=== PATIENT | female | born 1935 | race Caucasian/White ===

== ENCOUNTER 2017-02-20 14:23 | Emergency (ER) | payer OTHER ==
[~2017-02-20] VITALS: Ht 162.6 cm; Wt 50.5 kg
[2017-02-20] MEDS ORDERED: LIDOCAINE 1%, 10ML INFIL ONE (15:00)
[2017-02-20 15:12] LABS: BLOOD UREA NITROGEN 29 mg/dL (7-18)
[2017-02-20] MEDS ORDERED: DIPH,PERTUSS(ACELL),TET VAC/PF 0.5 ML IM-VACC ONE ×2 (16:00→16:14)
[2017-02-20 16:26] VITALS: BP 137/53
== END 2017-02-20 16:51 | disposition home or self-care (01) ==
LOC: ED 14:47
DX: S01.01XA Laceration without foreign body of scalp, initial encounter (principal); E03.9 Hypothyroidism, unspecified; W01.0XXA Fall on same level from slipping, tripping and stumbling without subsequent striking against object, initial encounter; Y93.89 Activity, other specified; Y92.009 Unspecified place in unspecified non-institutional (private) residence as the place of occurrence of the external cause; Y99.9 Unspecified external cause status
CPT/HCPCS: 12001; 36415; 70450; 72125; 80048; 82040; 85025; 85610; 85730; 90471; 90715; 93005

== ENCOUNTER 2018-01-07 13:59 | Inpatient (IN) | payer OTHER ==
[~2018-01-07] VITALS: Ht 157.5 cm; Wt 56.2 kg
[2018-01-07] MEDS ORDERED: HYDR-3237 PO (14:41)
[2018-01-07] MEDS ORDERED: LEVO25TA4 PO (14:41)
[2018-01-07] MEDS ORDERED: PRAV10TA2 PO (14:41)
[2018-01-07] MEDS ORDERED: HYDR12.53 PO (14:41)
[2018-01-07 14:46] LABS: MICROSCOPIC NOT IND
[2018-01-07] MEDS ORDERED: SODIUM CHLORIDE 0.9% 1,000ML IVBOLUS ONE (15:00)
[2018-01-07] MEDS ORDERED: SODIUM CHLORIDE FLUSH 10ML SYR IVF ONE (15:00)
[2018-01-07 15:24] LABS: BASOPHILS # (AUTO) 0.07 x10^3/uL (0-0.1); BASOPHILS % (AUTO) 1 % (0-1); EOSINOPHILS # (AUTO) 0.07 x10^3/uL (0-0.4); EOSINOPHILS % (AUTO) 1 % (1-7); LYMPHOCYTES # (AUTO) 2.28 x10^3/uL (1-3.4); LYMPHOCYTES % (AUTO) 27 % (22-44); MD NO; MEAN CORPUSCULAR HGB CONC 33.7 g/dL (32.4-35.8); MEAN PLATELET VOLUME 8.1 fL (7.4-10.4); MONOCYTES % (AUTO) 12 % (2-9); NEUTROPHILS # (AUTO) 5.18 x10^3/uL (1.8-6.8); NEUTROPHILS % (AUTO) 60 % (42-75); PLATELET COUNT 320 x10^3/uL (130-400); RED CELL DISTRIBUTION WIDTH 13.6 % (9.6-15.2)
[2018-01-07 15:29] LABS: ALBUMIN 3.8 g/dL (3.4-5.0); ANION GAP 8 mmol/L (5-15); CALCIUM 9.4 mg/dL (8.5-10.1); CHLORIDE 106 mmol/L (98-107)
[2018-01-07 15:32] LABS: ALANINE AMINOTRANSFERASE 43 U/L (12-78); ALKALINE PHOSPHATASE 86 U/L (45-117); BILIRUBIN,TOTAL 0.6 mg/dL (0.2-1.0); CREATININE 1.81 mg/dL (0.55-1.02); FREE T4 (FREE THYROXINE) 1.98 ng/dL (0.76-1.46); TOTAL PROTEIN 8.2 g/dL (6.4-8.2)
[2018-01-07 15:37] LABS: THYROID STIMULATING HORMONE 0.313 mIU/L (0.358-3.740); TROPONIN I 0.275 ng/mL (0.000-0.045)
[2018-01-07] MEDS ORDERED: SODIUM CHLORIDE 0.9%, 500ML IVBOLUS ONE (16:30)
[2018-01-07] MEDS ORDERED: ONDANSETRON 2MG/ML, 2ML IVPush PRN (17:00)
[2018-01-07] MEDS ORDERED: HALOPERIDOL 1 MG TABLET PO PRN (17:00)
[2018-01-07] MEDS ORDERED: SODIUM CHLORIDE FLUSH 10ML SYR IVF PRN (17:00)
[2018-01-07] MEDS ORDERED: BISACODYL 10 MG SUPP PR PRN (17:00)
[2018-01-07] MEDS: HEPARIN 5,000 UNITS/ML, 1ML SQ SCH (18:21)
[2018-01-07] MEDS: NICOTINE 7 MG/24 HR PATCH.TD24 TD SCH (18:21)
[2018-01-07] MEDS: D5%-0.45NACL+KCL 20MEQ 1,000 ML IV SCH (18:21)
[2018-01-07 20:00] VITALS: BP 132/65
[2018-01-08] MEDS ORDERED: PNEUMOCOCCAL 23 VACCINE IM-VACC ONE (02:00)
[2018-01-08] MEDS: D5%-0.45NACL+KCL 20MEQ 1,000 ML IV SCH ×3 (02:00→18:19)
[2018-01-08 02:31] VITALS: BP 133/64
[2018-01-08 04:55] LABS: BASOPHILS # (AUTO) 0.06 x10^3/uL (0-0.1); BASOPHILS % (AUTO) 1 % (0-1); EOSINOPHILS # (AUTO) 0.06 x10^3/uL (0-0.4); EOSINOPHILS % (AUTO) 1 % (1-7); LYMPHOCYTES # (AUTO) 1.63 x10^3/uL (1-3.4); LYMPHOCYTES % (AUTO) 20 % (22-44); MD NO; MEAN CORPUSCULAR HEMOGLOBIN 29.5 pg (27.0-34.8); MEAN CORPUSCULAR HGB CONC 34.1 g/dL (32.4-35.8); MEAN CORPUSCULAR VOLUME 86.4 fL (80-100); MEAN PLATELET VOLUME 8.2 fL (7.4-10.4); MONOCYTES % (AUTO) 11 % (2-9); NEUTROPHILS # (AUTO) 5.36 x10^3/uL (1.8-6.8); NEUTROPHILS % (AUTO) 67 % (42-75); PLATELET COUNT 298 x10^3/uL (130-400); RED BLOOD COUNT 4.57 x10^6/uL (3.82-5.3); RED CELL DISTRIBUTION WIDTH 13.4 % (9.6-15.2)
[2018-01-08 05:05] LABS: ALANINE AMINOTRANSFERASE 34 U/L (12-78); ALBUMIN 3.2 g/dL (3.4-5.0); ANION GAP 7 mmol/L (5-15); CALCIUM 8.8 mg/dL (8.5-10.1); CHLORIDE 108 mmol/L (98-107)
[2018-01-08 05:07] LABS: ALKALINE PHOSPHATASE 79 U/L (45-117); BILIRUBIN,TOTAL 0.5 mg/dL (0.2-1.0); TOTAL PROTEIN 6.8 g/dL (6.4-8.2)
[2018-01-08] MEDS: HEPARIN 5,000 UNITS/ML, 1ML SQ SCH ×2 (06:14→18:19)
[2018-01-08] MEDS ORDERED: POTASSIUM CHLORIDE 20 MEQ TAB.ER.PRT PO ONE (08:00)
[2018-01-08 08:49] VITALS: BP 135/61
[2018-01-08 09:07] LABS: TROPONIN I 0.245 ng/mL (0.000-0.045)
[2018-01-08] MEDS: LEVOTHYROXINE 25 MCG TABLET PO SCH (10:08)
[2018-01-08 12:09] LABS: TROPONIN I 0.227 ng/mL (0.000-0.045)
[2018-01-08] MEDS: ACETAMINOPHEN 325 MG TABLET PO PRN (12:44)
[2018-01-08 14:05] VITALS: BP 120/61
[2018-01-08] MEDS: NICOTINE 7 MG/24 HR PATCH.TD24 TD SCH (18:19)
[2018-01-08 20:14] VITALS: BP 127/62
[2018-01-09 01:10] VITALS: BP 139/62
[2018-01-09] MEDS: D5%-0.45NACL+KCL 20MEQ 1,000 ML IV SCH ×3 (02:28→19:27)
[2018-01-09 04:54] LABS: ANION GAP 6 mmol/L (5-15); CALCIUM 8.8 mg/dL (8.5-10.1); CHLORIDE 107 mmol/L (98-107); CREATININE 1.04 mg/dL (0.55-1.02)
[2018-01-09] MEDS: ASPIRIN 81 MG TABLET EC PO SCH (06:05)
[2018-01-09] MEDS: LEVOTHYROXINE 25 MCG TABLET PO SCH (06:05)
[2018-01-09] MEDS: HEPARIN 5,000 UNITS/ML, 1ML SQ SCH ×2 (06:06→18:41)
[2018-01-09 06:50] VITALS: BP 115/55
[2018-01-09 14:27] VITALS: BP 147/70
[2018-01-09] MEDS: NICOTINE 7 MG/24 HR PATCH.TD24 TD SCH (18:07)
[2018-01-09 19:23] VITALS: BP 132/61
[2018-01-10 02:00] VITALS: BP 147/69
[2018-01-10] MEDS: LEVOTHYROXINE 25 MCG TABLET PO SCH (05:58)
[2018-01-10] MEDS: D5%-0.45NACL+KCL 20MEQ 1,000 ML IV SCH (05:58)
[2018-01-10] MEDS: ASPIRIN 81 MG TABLET EC PO SCH ×2 (05:59→06:02)
[2018-01-10] MEDS: HEPARIN 5,000 UNITS/ML, 1ML SQ SCH ×2 (05:59→18:07)
[2018-01-10 06:35] VITALS: BP 103/63
[2018-01-10 12:18] LABS: ANION GAP 7 mmol/L (5-15); CALCIUM 8.9 mg/dL (8.5-10.1); CHLORIDE 104 mmol/L (98-107)
[2018-01-10 12:20] LABS: CREATININE 0.98 mg/dL (0.55-1.02)
[2018-01-10 14:50] VITALS: BP 128/69
[2018-01-10] MEDS: NICOTINE 7 MG/24 HR PATCH.TD24 TD SCH (18:07)
[2018-01-10] MEDS: D5%-0.45% NACL 1,000 ML IV SCH (18:07)
[2018-01-10 19:39] VITALS: BP 96/66
[2018-01-11 01:03] VITALS: BP 103/64
[2018-01-11] MEDS: LEVOTHYROXINE 25 MCG TABLET PO SCH (06:18)
[2018-01-11] MEDS: ASPIRIN 325 MG TABLET PO SCH (06:18)
[2018-01-11 06:38] VITALS: BP 132/65
[2018-01-11] MEDS: HEPARIN 5,000 UNITS/ML, 1ML SQ SCH ×2 (09:22→18:20)
[2018-01-11 12:58] VITALS: BP 111/64
[2018-01-11] MEDS: D5%-0.45% NACL 1,000 ML IV SCH (15:48)
[2018-01-11] MEDS: NICOTINE 7 MG/24 HR PATCH.TD24 TD SCH (18:23)
[2018-01-11 20:46] VITALS: BP 106/66
[2018-01-12 02:00] VITALS: BP 124/68
[2018-01-12] MEDS: LEVOTHYROXINE 25 MCG TABLET PO SCH (05:44)
[2018-01-12] MEDS: HEPARIN 5,000 UNITS/ML, 1ML SQ SCH ×2 (05:44→18:25)
[2018-01-12] MEDS: ASPIRIN 325 MG TABLET PO SCH (05:44)
[2018-01-12 06:43] VITALS: BP 88/49
[2018-01-12] MEDS: D5%-0.45% NACL 1,000 ML IV SCH (10:28)
[2018-01-12 13:21] VITALS: BP 110/56
[2018-01-12] MEDS: ACETAMINOPHEN 325 MG TABLET PO PRN (13:32)
[2018-01-12] MEDS: NICOTINE 7 MG/24 HR PATCH.TD24 TD SCH (17:37)
[2018-01-12 18:22] LABS: CLOSTRIDIUM DIFFICILE ANTIGEN NEGATIVE; CLOSTRIDIUM DIFFICILE TOXIN NEGATIVE (Negative)
[2018-01-12 20:07] VITALS: BP 112/61
[2018-01-13 01:11] VITALS: BP 98/54
[2018-01-13] MEDS: LEVOTHYROXINE 25 MCG TABLET PO SCH (06:09)
[2018-01-13] MEDS: ASPIRIN 325 MG TABLET PO SCH (06:09)
[2018-01-13] MEDS: HEPARIN 5,000 UNITS/ML, 1ML SQ SCH ×2 (06:11→18:22)
[2018-01-13] MEDS: HYDROCORTISONE CRM 0.5%, 30GM TP SCH ×2 (10:30→21:00)
[2018-01-13 12:53] VITALS: BP 119/63
[2018-01-13] MEDS: NICOTINE 7 MG/24 HR PATCH.TD24 TD SCH (18:00)
[2018-01-13] MEDS ORDERED: ONDANSETRON 2MG/ML, 2ML IVPush PRN (18:08)
[2018-01-13] MEDS ORDERED: ONDANSETRON ODT 4 MG PO PRN ×2 (18:30)
[2018-01-13 20:14] VITALS: BP 100/62
[2018-01-14 01:31] VITALS: BP 105/75
[2018-01-14] MEDS: HEPARIN 5,000 UNITS/ML, 1ML SQ SCH ×2 (06:26→18:07)
[2018-01-14] MEDS: ASPIRIN 325 MG TABLET PO SCH (06:28)
[2018-01-14] MEDS: LEVOTHYROXINE 25 MCG TABLET PO SCH (06:28)
[2018-01-14 08:00] VITALS: BP 101/68
[2018-01-14] MEDS: HYDROCORTISONE CRM 0.5%, 30GM TP SCH ×2 (08:30→20:53)
[2018-01-14 12:58] VITALS: BP_SYST 88; BP_SYST 93; BP_DIAS 44
[2018-01-14] MEDS: ACETAMINOPHEN 325 MG TABLET PO PRN (14:55)
[2018-01-14 17:44] VITALS: BP 113/63
[2018-01-14] MEDS: NICOTINE 7 MG/24 HR PATCH.TD24 TD SCH (18:08)
[2018-01-14 19:46] VITALS: BP 118/66
[2018-01-15 01:55] VITALS: BP 112/62
[2018-01-15] MEDS: LEVOTHYROXINE 25 MCG TABLET PO SCH (05:47)
[2018-01-15] MEDS: HEPARIN 5,000 UNITS/ML, 1ML SQ SCH ×2 (05:47→18:30)
[2018-01-15] MEDS: ASPIRIN 325 MG TABLET PO SCH (05:47)
[2018-01-15 07:40] VITALS: BP 104/66
[2018-01-15] MEDS: HYDROCORTISONE CRM 0.5%, 30GM TP SCH ×2 (09:00→19:46)
[2018-01-15 13:07] VITALS: BP 101/62
[2018-01-15] MEDS: NICOTINE 7 MG/24 HR PATCH.TD24 TD SCH (18:31)
[2018-01-15 19:18] VITALS: BP 88/54
[2018-01-15 19:19] VITALS: BP 108/60
[2018-01-16 01:43] VITALS: BP 141/83
[2018-01-16] MEDS: LEVOTHYROXINE 25 MCG TABLET PO SCH (05:39)
[2018-01-16] MEDS: HEPARIN 5,000 UNITS/ML, 1ML SQ SCH ×2 (05:40→20:21)
[2018-01-16] MEDS: ASPIRIN 325 MG TABLET PO SCH (05:40)
[2018-01-16 06:10] LABS: ANION GAP 7 mmol/L (5-15); CHLORIDE 103 mmol/L (98-107)
[2018-01-16 06:13] LABS: CALCIUM 9.3 mg/dL (8.5-10.1); CREATININE 1.14 mg/dL (0.55-1.02)
[2018-01-16 07:22] VITALS: BP 93/55
[2018-01-16] MEDS: HYDROCORTISONE CRM 0.5%, 30GM TP SCH ×2 (09:00→20:20)
[2018-01-16 14:00] VITALS: BP 125/68
[2018-01-16 19:31] VITALS: BP 102/59
[2018-01-16] MEDS: NICOTINE 7 MG/24 HR PATCH.TD24 TD SCH (20:21)
[2018-01-17 03:57] VITALS: BP 123/58
[2018-01-17 05:33] LABS: BASOPHILS # (AUTO) 0.07 x10^3/uL (0-0.1); BASOPHILS % (AUTO) 1 % (0-1); EOSINOPHILS # (AUTO) 0.11 x10^3/uL (0-0.4); EOSINOPHILS % (AUTO) 1 % (1-7); LYMPHOCYTES % (AUTO) 30 % (22-44); MD NO; MEAN CORPUSCULAR HEMOGLOBIN 28.9 pg (27.0-34.8); MEAN CORPUSCULAR HGB CONC 33.3 g/dL (32.4-35.8); MEAN PLATELET VOLUME 7.7 fL (7.4-10.4); MONOCYTES # (AUTO) 0.78 x10^3/uL (0.2-0.8); MONOCYTES % (AUTO) 10 % (2-9); NEUTROPHILS % (AUTO) 58 % (42-75); PLATELET COUNT 263 x10^3/uL (130-400); RED BLOOD COUNT 4.43 x10^6/uL (3.82-5.3); RED CELL DISTRIBUTION WIDTH 14.1 % (9.6-15.2)
[2018-01-17 05:41] LABS: ANION GAP 8 mmol/L (5-15); CALCIUM 9.1 mg/dL (8.5-10.1); CHLORIDE 105 mmol/L (98-107); CREATININE 1.13 mg/dL (0.55-1.02)
[2018-01-17] MEDS: ASPIRIN 325 MG TABLET PO SCH (05:45)
[2018-01-17] MEDS: LEVOTHYROXINE 25 MCG TABLET PO SCH (05:45)
[2018-01-17 07:56] VITALS: BP 109/69
[2018-01-17] MEDS: HEPARIN 5,000 UNITS/ML, 1ML SQ SCH ×2 (08:00→20:26)
[2018-01-17] MEDS: HYDROCORTISONE CRM 0.5%, 30GM TP SCH ×2 (09:00→20:26)
[2018-01-17 12:24] VITALS: BP 114/70
[2018-01-17 19:53] VITALS: BP 109/68
[2018-01-17] MEDS: NICOTINE 7 MG/24 HR PATCH.TD24 TD SCH (20:26)
[2018-01-18 01:30] VITALS: BP 148/57
[2018-01-18] MEDS: LEVOTHYROXINE 25 MCG TABLET PO SCH (05:24)
[2018-01-18] MEDS: ASPIRIN 325 MG TABLET PO SCH (05:24)
[2018-01-18 07:14] VITALS: BP 111/52
[2018-01-18] MEDS: HYDROCORTISONE CRM 0.5%, 30GM TP SCH ×2 (09:00→21:00)
[2018-01-18] MEDS: HEPARIN 5,000 UNITS/ML, 1ML SQ SCH ×2 (10:16→20:45)
[2018-01-18 13:30] VITALS: BP 109/64
[2018-01-18] MEDS: ACETAMINOPHEN 325 MG TABLET PO PRN (15:45)
[2018-01-18 19:18] VITALS: BP 112/62
[2018-01-18] MEDS: NICOTINE 7 MG/24 HR PATCH.TD24 TD SCH (20:44)
[2018-01-19 03:02] VITALS: BP 133/65
[2018-01-19] MEDS: ACETAMINOPHEN 325 MG TABLET PO PRN ×2 (06:11→10:36)
[2018-01-19] MEDS: ASPIRIN 325 MG TABLET PO SCH (06:11)
[2018-01-19] MEDS: LEVOTHYROXINE 25 MCG TABLET PO SCH (06:11)
[2018-01-19 08:00] VITALS: BP 110/61
[2018-01-19] MEDS: HYDROCORTISONE CRM 0.5%, 30GM TP SCH ×2 (08:56→21:00)
[2018-01-19] MEDS: HEPARIN 5,000 UNITS/ML, 1ML SQ SCH ×2 (08:56→20:00)
[2018-01-19 14:00] VITALS: BP 104/54
[2018-01-19 20:06] VITALS: BP 132/69
[2018-01-19] MEDS: NICOTINE 7 MG/24 HR PATCH.TD24 TD SCH (22:18)
[2018-01-20 02:14] VITALS: BP 132/60
[2018-01-20] MEDS: ASPIRIN 325 MG TABLET PO SCH (05:33)
[2018-01-20] MEDS: LEVOTHYROXINE 25 MCG TABLET PO SCH (05:33)
[2018-01-20] MEDS: ACETAMINOPHEN 325 MG TABLET PO PRN ×3 (05:33→18:18)
[2018-01-20 07:55] VITALS: BP 109/66
[2018-01-20] MEDS: HEPARIN 5,000 UNITS/ML, 1ML SQ SCH ×2 (08:15→20:58)
[2018-01-20] MEDS: HYDROCORTISONE CRM 0.5%, 30GM TP SCH ×2 (08:16→20:58)
[2018-01-20 13:32] VITALS: BP 104/58
[2018-01-20] MEDS: NICOTINE 7 MG/24 HR PATCH.TD24 TD SCH (20:00)
[2018-01-20 20:24] VITALS: BP_SYST 105; BP_SYST 76; BP_DIAS 44; BP_DIAS 62
[2018-01-20] MEDS: FAMCICLOVIR 500 MG TABLET PO SCH (20:57)
[2018-01-21 01:59] VITALS: BP 119/56
[2018-01-21] MEDS: FAMCICLOVIR 500 MG TABLET PO SCH ×3 (06:29→21:09)
[2018-01-21] MEDS: ASPIRIN 325 MG TABLET PO SCH (06:30)
[2018-01-21] MEDS: LEVOTHYROXINE 25 MCG TABLET PO SCH (06:30)
[2018-01-21] MEDS: HEPARIN 5,000 UNITS/ML, 1ML SQ SCH ×2 (08:00→21:10)
[2018-01-21] MEDS: HYDROCORTISONE CRM 0.5%, 30GM TP SCH ×2 (09:00→21:00)
[2018-01-21 09:10] VITALS: BP 99/57
[2018-01-21 12:48] VITALS: BP 121/65
[2018-01-21] MEDS: NICOTINE 7 MG/24 HR PATCH.TD24 TD SCH (20:00)
[2018-01-21 20:11] VITALS: BP 99/55
[2018-01-21] MEDS: ACETAMINOPHEN 325 MG TABLET PO PRN (21:10)
[2018-01-22 02:01] VITALS: BP 97/52
[2018-01-22] MEDS: ASPIRIN 325 MG TABLET PO SCH (05:35)
[2018-01-22] MEDS: LEVOTHYROXINE 25 MCG TABLET PO SCH (05:35)
[2018-01-22] MEDS: FAMCICLOVIR 500 MG TABLET PO SCH ×3 (05:35→21:57)
[2018-01-22 08:14] VITALS: BP 112/65
[2018-01-22] MEDS: HYDROCORTISONE CRM 0.5%, 30GM TP SCH ×2 (09:00→21:55)
[2018-01-22] MEDS: HEPARIN 5,000 UNITS/ML, 1ML SQ SCH ×2 (09:11→21:55)
[2018-01-22 13:57] VITALS: BP 104/54
[2018-01-22 14:39] VITALS: BP 112/69
[2018-01-22] MEDS: ACETAMINOPHEN 325 MG TABLET PO PRN (17:42)
[2018-01-22 18:54] VITALS: BP 107/64
[2018-01-22] MEDS: NICOTINE 7 MG/24 HR PATCH.TD24 TD SCH (21:55)
[2018-01-23 02:23] VITALS: BP 127/69
[2018-01-23] MEDS: LEVOTHYROXINE 25 MCG TABLET PO SCH (06:21)
[2018-01-23] MEDS: FAMCICLOVIR 500 MG TABLET PO SCH ×3 (06:21→21:54)
[2018-01-23] MEDS: ASPIRIN 325 MG TABLET PO SCH (06:21)
[2018-01-23 08:05] VITALS: BP 101/58
[2018-01-23] MEDS: HYDROCORTISONE CRM 0.5%, 30GM TP SCH ×2 (09:00→21:55)
[2018-01-23] MEDS: HEPARIN 5,000 UNITS/ML, 1ML SQ SCH ×2 (10:31→21:54)
[2018-01-23 12:46] VITALS: BP 118/64
[2018-01-23 19:22] VITALS: BP 91/53
[2018-01-23] MEDS: NICOTINE 7 MG/24 HR PATCH.TD24 TD SCH (21:54)
[2018-01-24 01:12] VITALS: BP 147/67
[2018-01-24] MEDS: LEVOTHYROXINE 25 MCG TABLET PO SCH (05:34)
[2018-01-24] MEDS: FAMCICLOVIR 500 MG TABLET PO SCH ×3 (05:34→21:15)
[2018-01-24] MEDS: ASPIRIN 325 MG TABLET PO SCH (05:34)
[2018-01-24 07:32] VITALS: BP 77/47
[2018-01-24 07:56] VITALS: BP 94/60
[2018-01-24] MEDS: HYDROCORTISONE CRM 0.5%, 30GM TP SCH ×2 (09:00→21:15)
[2018-01-24] MEDS: HEPARIN 5,000 UNITS/ML, 1ML SQ SCH ×2 (10:26→21:15)
[2018-01-24 12:28] VITALS: BP 108/51
[2018-01-24] MEDS: ACETAMINOPHEN 325 MG TABLET PO PRN (16:38)
[2018-01-24 20:32] VITALS: BP 108/58
[2018-01-24] MEDS: NICOTINE 7 MG/24 HR PATCH.TD24 TD SCH (21:15)
[2018-01-25 03:59] VITALS: BP 145/68
[2018-01-25] MEDS: LEVOTHYROXINE 25 MCG TABLET PO SCH (06:21)
[2018-01-25] MEDS: ASPIRIN 325 MG TABLET PO SCH (06:21)
[2018-01-25] MEDS: FAMCICLOVIR 500 MG TABLET PO SCH ×3 (06:21→21:33)
[2018-01-25] MEDS: HEPARIN 5,000 UNITS/ML, 1ML SQ SCH ×2 (08:36→20:35)
[2018-01-25] MEDS: HYDROCORTISONE CRM 0.5%, 30GM TP SCH (08:39)
[2018-01-25 09:31] VITALS: BP 110/61
[2018-01-25 14:53] VITALS: BP 92/58
[2018-01-25 20:28] VITALS: BP 95/54
[2018-01-25] MEDS: NICOTINE 7 MG/24 HR PATCH.TD24 TD SCH (20:36)
[2018-01-25] MEDS: HYDROCORTISONE OINT 0.5%, 30GM TP SCH (21:33)
[2018-01-26 01:55] VITALS: BP 114/66
[2018-01-26] MEDS: FAMCICLOVIR 500 MG TABLET PO SCH ×3 (05:54→21:35)
[2018-01-26] MEDS: LEVOTHYROXINE 25 MCG TABLET PO SCH (05:55)
[2018-01-26] MEDS: ASPIRIN 325 MG TABLET PO SCH (05:55)
[2018-01-26 08:00] VITALS: BP 100/61
[2018-01-26] MEDS: HEPARIN 5,000 UNITS/ML, 1ML SQ SCH ×2 (08:34→19:32)
[2018-01-26] MEDS: HYDROCORTISONE OINT 0.5%, 30GM TP SCH ×2 (08:34→21:35)
[2018-01-26 14:43] VITALS: BP 101/65
[2018-01-26] MEDS: NICOTINE 7 MG/24 HR PATCH.TD24 TD SCH (19:31)
[2018-01-26 19:34] VITALS: BP 104/61
[2018-01-26 19:59] VITALS: BP 114/67
[2018-01-27 00:15] VITALS: BP 110/61
[2018-01-27] MEDS: FAMCICLOVIR 500 MG TABLET PO SCH ×2 (05:51→14:28)
[2018-01-27] MEDS: ASPIRIN 325 MG TABLET PO SCH (05:51)
[2018-01-27] MEDS: LEVOTHYROXINE 25 MCG TABLET PO SCH (05:51)
[2018-01-27 05:59] LABS: ANION GAP 6 mmol/L (5-15); CALCIUM 8.4 mg/dL (8.5-10.1); CHLORIDE 109 mmol/L (98-107); CREATININE 1.19 mg/dL (0.55-1.02)
[2018-01-27 08:21] VITALS: BP 117/70
[2018-01-27] MEDS: HEPARIN 5,000 UNITS/ML, 1ML SQ SCH ×2 (09:05→20:55)
[2018-01-27] MEDS: HYDROCORTISONE OINT 0.5%, 30GM TP SCH ×2 (09:05→20:55)
[2018-01-27 14:52] VITALS: BP 108/65
[2018-01-27] MEDS: NICOTINE 7 MG/24 HR PATCH.TD24 TD SCH (20:55)
[2018-01-27 20:59] VITALS: BP 154/76
[2018-01-28 02:02] VITALS: BP 151/62
[2018-01-28] MEDS: ASPIRIN 325 MG TABLET PO SCH (05:35)
[2018-01-28] MEDS: LEVOTHYROXINE 25 MCG TABLET PO SCH (05:36)
[2018-01-28 06:05] LABS: ANION GAP 8 mmol/L (5-15); CALCIUM 9.1 mg/dL (8.5-10.1); CHLORIDE 107 mmol/L (98-107)
[2018-01-28 06:08] LABS: CREATININE 1.09 mg/dL (0.55-1.02)
[2018-01-28] MEDS: HEPARIN 5,000 UNITS/ML, 1ML SQ SCH ×2 (07:32→20:18)
[2018-01-28] MEDS: HYDROCORTISONE OINT 0.5%, 30GM TP SCH ×2 (07:32→20:18)
[2018-01-28 07:34] VITALS: BP 120/64
[2018-01-28 16:04] VITALS: BP 110/59
[2018-01-28 18:39] VITALS: BP 106/69
[2018-01-28] MEDS: NICOTINE 7 MG/24 HR PATCH.TD24 TD SCH (20:18)
[2018-01-29 01:09] VITALS: BP 144/70
[2018-01-29 05:09] LABS: CALCIUM 8.9 mg/dL (8.5-10.1); CHLORIDE 107 mmol/L (98-107)
[2018-01-29 05:12] LABS: ANION GAP 5 mmol/L (5-15); CREATININE 1.09 mg/dL (0.55-1.02)
[2018-01-29] MEDS: ASPIRIN 325 MG TABLET PO SCH (05:54)
[2018-01-29] MEDS: LEVOTHYROXINE 25 MCG TABLET PO SCH (05:55)
[2018-01-29 07:40] VITALS: BP 93/60
[2018-01-29] MEDS: HEPARIN 5,000 UNITS/ML, 1ML SQ SCH ×2 (08:22→21:11)
[2018-01-29] MEDS: HYDROCORTISONE OINT 0.5%, 30GM TP SCH ×2 (08:22→21:12)
[2018-01-29 12:13] VITALS: BP 117/56
[2018-01-29 18:42] VITALS: BP 107/70
[2018-01-29] MEDS: NICOTINE 7 MG/24 HR PATCH.TD24 TD SCH (21:12)
[2018-01-30 01:11] VITALS: BP 117/58
[2018-01-30] MEDS: ASPIRIN 325 MG TABLET PO SCH (06:16)
[2018-01-30] MEDS: LEVOTHYROXINE 25 MCG TABLET PO SCH (06:16)
[2018-01-30 06:35] VITALS: BP 92/54
[2018-01-30 07:58] VITALS: BP 100/54
[2018-01-30] MEDS: HYDROCORTISONE OINT 0.5%, 30GM TP SCH ×2 (08:00→20:00)
[2018-01-30] MEDS: HEPARIN 5,000 UNITS/ML, 1ML SQ SCH ×2 (08:00→19:59)
[2018-01-30 12:47] VITALS: BP 94/54
[2018-01-30 13:30] VITALS: BP 90/52
[2018-01-30 19:09] VITALS: BP 94/54
[2018-01-30] MEDS: NICOTINE 7 MG/24 HR PATCH.TD24 TD SCH (19:59)
[2018-01-31 01:33] VITALS: BP 137/79
[2018-01-31] MEDS: ACETAMINOPHEN 325 MG TABLET PO PRN (02:07)
[2018-01-31] MEDS: LEVOTHYROXINE 25 MCG TABLET PO SCH (05:19)
[2018-01-31] MEDS: ASPIRIN 325 MG TABLET PO SCH (05:19)
[2018-01-31 07:23] VITALS: BP 103/49
[2018-01-31] MEDS: HEPARIN 5,000 UNITS/ML, 1ML SQ SCH ×2 (07:33→20:58)
[2018-01-31] MEDS: HYDROCORTISONE OINT 0.5%, 30GM TP SCH ×2 (07:33→20:58)
[2018-01-31 12:12] VITALS: BP 100/59
[2018-01-31 20:23] VITALS: BP 111/60
[2018-01-31] MEDS: NICOTINE 7 MG/24 HR PATCH.TD24 TD SCH (20:58)
[2018-02-01 02:13] VITALS: BP 104/61
[2018-02-01] MEDS: ASPIRIN 325 MG TABLET PO SCH (05:49)
[2018-02-01] MEDS: LEVOTHYROXINE 25 MCG TABLET PO SCH (05:49)
[2018-02-01 08:13] VITALS: BP 101/63
[2018-02-01] MEDS: HEPARIN 5,000 UNITS/ML, 1ML SQ SCH ×2 (12:30→21:07)
[2018-02-01] MEDS: HYDROCORTISONE OINT 0.5%, 30GM TP SCH ×2 (12:32→21:07)
[2018-02-01 14:45] VITALS: BP 107/66
[2018-02-01 18:18] VITALS: BP 100/50
[2018-02-01] MEDS: NICOTINE 7 MG/24 HR PATCH.TD24 TD SCH (21:07)
[2018-02-02 03:37] VITALS: BP 115/57
[2018-02-02] MEDS: LEVOTHYROXINE 25 MCG TABLET PO SCH (06:11)
[2018-02-02] MEDS: ASPIRIN 325 MG TABLET PO SCH (06:11)
[2018-02-02] MEDS: HEPARIN 5,000 UNITS/ML, 1ML SQ SCH ×2 (08:00→20:39)
[2018-02-02 08:30] VITALS: BP 104/58
[2018-02-02] MEDS: HYDROCORTISONE OINT 0.5%, 30GM TP SCH ×2 (09:00→20:41)
[2018-02-02 10:25] VITALS: BP 128/91
[2018-02-02 14:30] VITALS: BP 108/60
[2018-02-02 19:02] VITALS: BP 103/56
[2018-02-02] MEDS: NICOTINE 7 MG/24 HR PATCH.TD24 TD SCH (20:41)
[2018-02-03 01:01] VITALS: BP 92/49
[2018-02-03 05:27] LABS: CHLORIDE 106 mmol/L (98-107)
[2018-02-03 05:31] LABS: ANION GAP 7 mmol/L (5-15); CALCIUM 8.6 mg/dL (8.5-10.1); CREATININE 1.18 mg/dL (0.55-1.02)
[2018-02-03] MEDS: ASPIRIN 325 MG TABLET PO SCH (05:49)
[2018-02-03] MEDS: LEVOTHYROXINE 25 MCG TABLET PO SCH (05:49)
[2018-02-03 06:08] VITALS: BP 104/65
[2018-02-03] MEDS: HYDROCORTISONE OINT 0.5%, 30GM TP SCH ×2 (09:30→20:55)
[2018-02-03] MEDS: HEPARIN 5,000 UNITS/ML, 1ML SQ SCH ×2 (09:30→20:00)
[2018-02-03 13:29] VITALS: BP 108/69
[2018-02-03 20:00] VITALS: BP 102/55
[2018-02-03] MEDS: NICOTINE 7 MG/24 HR PATCH.TD24 TD SCH (20:55)
[2018-02-04 02:40] VITALS: BP 97/51
[2018-02-04] MEDS: LEVOTHYROXINE 25 MCG TABLET PO SCH (05:34)
[2018-02-04] MEDS: ASPIRIN 325 MG TABLET PO SCH (05:34)
[2018-02-04 07:25] VITALS: BP 93/53
[2018-02-04] MEDS: HEPARIN 5,000 UNITS/ML, 1ML SQ SCH ×2 (10:37→19:56)
[2018-02-04] MEDS: HYDROCORTISONE OINT 0.5%, 30GM TP SCH ×2 (10:37→19:56)
[2018-02-04 14:00] VITALS: BP 90/49
[2018-02-04 19:18] VITALS: BP 93/51
[2018-02-04] MEDS: NICOTINE 7 MG/24 HR PATCH.TD24 TD SCH (19:56)
[2018-02-05 02:29] VITALS: BP 121/69
[2018-02-05] MEDS: LEVOTHYROXINE 25 MCG TABLET PO SCH (05:24)
[2018-02-05] MEDS: ASPIRIN 325 MG TABLET PO SCH (05:24)
[2018-02-05 08:02] VITALS: BP 97/60
[2018-02-05] MEDS: HYDROCORTISONE OINT 0.5%, 30GM TP SCH ×2 (09:37→21:41)
[2018-02-05] MEDS: HEPARIN 5,000 UNITS/ML, 1ML SQ SCH ×2 (09:37→21:41)
[2018-02-05 13:39] VITALS: BP 86/49
[2018-02-05 19:21] VITALS: BP 122/67
[2018-02-05] MEDS: NICOTINE 7 MG/24 HR PATCH.TD24 TD SCH (21:41)
[2018-02-06 01:32] VITALS: BP 93/52
[2018-02-06] MEDS: ASPIRIN 325 MG TABLET PO SCH (05:55)
[2018-02-06] MEDS: LEVOTHYROXINE 25 MCG TABLET PO SCH (05:55)
[2018-02-06] MEDS: HEPARIN 5,000 UNITS/ML, 1ML SQ SCH ×2 (08:20→22:56)
[2018-02-06] MEDS: HYDROCORTISONE OINT 0.5%, 30GM TP SCH ×2 (08:25→22:56)
[2018-02-06 09:20] VITALS: BP 83/54
[2018-02-06] MEDS: FLUDROCORTISONE 0.1 MG TABLET PO SCH ×2 (11:08→22:56)
[2018-02-06 15:09] VITALS: BP 94/50
[2018-02-06 19:15] VITALS: BP 99/54
[2018-02-06] MEDS: NICOTINE 7 MG/24 HR PATCH.TD24 TD SCH (22:56)
[2018-02-07 01:22] VITALS: BP 170/84
[2018-02-07] MEDS: ASPIRIN 325 MG TABLET PO SCH (06:05)
[2018-02-07] MEDS: LEVOTHYROXINE 25 MCG TABLET PO SCH (06:05)
[2018-02-07 07:35] VITALS: BP 120/67
[2018-02-07] MEDS: HEPARIN 5,000 UNITS/ML, 1ML SQ SCH ×2 (09:59→21:40)
[2018-02-07] MEDS: FLUDROCORTISONE 0.1 MG TABLET PO SCH ×2 (09:59→21:40)
[2018-02-07] MEDS: HYDROCORTISONE OINT 0.5%, 30GM TP SCH ×2 (10:00→21:40)
[2018-02-07 13:59] VITALS: BP 99/53
[2018-02-07 19:12] VITALS: BP 102/66
[2018-02-07] MEDS: NICOTINE 7 MG/24 HR PATCH.TD24 TD SCH (21:40)
[2018-02-08 03:13] VITALS: BP 108/62
[2018-02-08] MEDS: LEVOTHYROXINE 25 MCG TABLET PO SCH (05:43)
[2018-02-08] MEDS: ASPIRIN 325 MG TABLET PO SCH (05:43)
[2018-02-08 07:35] VITALS: BP 111/53
[2018-02-08] MEDS: FLUDROCORTISONE 0.1 MG TABLET PO SCH ×2 (09:06→22:24)
[2018-02-08] MEDS: HYDROCORTISONE OINT 0.5%, 30GM TP SCH ×2 (09:06→22:24)
[2018-02-08] MEDS: HEPARIN 5,000 UNITS/ML, 1ML SQ SCH ×2 (09:07→22:24)
[2018-02-08 13:00] VITALS: BP 99/45
[2018-02-08 20:00] VITALS: BP 90/50
[2018-02-08] MEDS: NICOTINE 7 MG/24 HR PATCH.TD24 TD SCH (22:24)
[2018-02-09 02:00] VITALS: BP 113/62
[2018-02-09] MEDS: ASPIRIN 325 MG TABLET PO SCH (06:10)
[2018-02-09] MEDS: LEVOTHYROXINE 25 MCG TABLET PO SCH (06:10)
[2018-02-09 07:00] VITALS: BP 115/63
[2018-02-09] MEDS: HYDROCORTISONE OINT 0.5%, 30GM TP SCH ×2 (10:09→22:29)
[2018-02-09] MEDS: FLUDROCORTISONE 0.1 MG TABLET PO SCH ×2 (10:09→22:28)
[2018-02-09] MEDS: HEPARIN 5,000 UNITS/ML, 1ML SQ SCH ×2 (10:13→22:28)
[2018-02-09 13:15] VITALS: BP 77/53
[2018-02-09] MEDS: ACETAMINOPHEN 325 MG TABLET PO PRN (14:12)
[2018-02-09 19:27] VITALS: BP 126/65
[2018-02-09 19:53] VITALS: BP 115/68
[2018-02-09] MEDS: NICOTINE 7 MG/24 HR PATCH.TD24 TD SCH (22:29)
[2018-02-10 01:03] VITALS: BP 124/74
[2018-02-10] MEDS: LEVOTHYROXINE 25 MCG TABLET PO SCH (06:08)
[2018-02-10] MEDS: ASPIRIN 325 MG TABLET PO SCH (06:08)
[2018-02-10 08:29] VITALS: BP 114/62
[2018-02-10] MEDS: HYDROCORTISONE OINT 0.5%, 30GM TP SCH ×2 (09:55→21:36)
[2018-02-10] MEDS: FLUDROCORTISONE 0.1 MG TABLET PO SCH ×2 (09:55→21:33)
[2018-02-10] MEDS: HEPARIN 5,000 UNITS/ML, 1ML SQ SCH ×2 (10:11→21:33)
[2018-02-10 13:39] VITALS: BP 76/43
[2018-02-10 16:59] VITALS: BP 114/58
[2018-02-10 21:03] VITALS: BP 66/42
[2018-02-10] MEDS: NICOTINE 7 MG/24 HR PATCH.TD24 TD SCH (21:33)
[2018-02-10 21:42] VITALS: BP 100/55
[2018-02-11 01:33] VITALS: BP 116/68
[2018-02-11] MEDS: LEVOTHYROXINE 25 MCG TABLET PO SCH (05:34)
[2018-02-11] MEDS: ASPIRIN 325 MG TABLET PO SCH (05:34)
[2018-02-11 05:53] LABS: ANION GAP 9 mmol/L (5-15); CALCIUM 9.1 mg/dL (8.5-10.1); CHLORIDE 111 mmol/L (98-107)
[2018-02-11 07:16] VITALS: BP 122/66
[2018-02-11] MEDS: HYDROCORTISONE OINT 0.5%, 30GM TP SCH ×2 (10:17→20:52)
[2018-02-11] MEDS: FLUDROCORTISONE 0.1 MG TABLET PO SCH ×2 (10:17→20:51)
[2018-02-11] MEDS: HEPARIN 5,000 UNITS/ML, 1ML SQ SCH ×2 (10:17→20:51)
[2018-02-11 11:51] LABS: BASOPHILS # (AUTO) 0.11 x10^3/uL (0-0.1); BASOPHILS % (AUTO) 2 % (0-1); EOSINOPHILS # (AUTO) 0.12 x10^3/uL (0-0.4); EOSINOPHILS % (AUTO) 2 % (1-7); LYMPHOCYTES # (AUTO) 1.74 x10^3/uL (1-3.4); LYMPHOCYTES % (AUTO) 25 % (22-44); MD NO; MEAN CORPUSCULAR HEMOGLOBIN 30.5 pg (27.0-34.8); MEAN CORPUSCULAR HGB CONC 33.6 g/dL (32.4-35.8); MEAN CORPUSCULAR VOLUME 90.6 fL (80-100); MEAN PLATELET VOLUME 8.1 fL (7.4-10.4); MONOCYTES # (AUTO) 0.61 x10^3/uL (0.2-0.8); MONOCYTES % (AUTO) 9 % (2-9); NEUTROPHILS # (AUTO) 4.39 x10^3/uL (1.8-6.8); NEUTROPHILS % (AUTO) 63 % (42-75); PLATELET COUNT 323 x10^3/uL (130-400); RED BLOOD COUNT 3.75 x10^6/uL (3.82-5.3)
[2018-02-11 15:03] VITALS: BP 100/64
[2018-02-11 19:58] VITALS: BP 97/54
[2018-02-11] MEDS: NICOTINE 7 MG/24 HR PATCH.TD24 TD SCH (20:51)
[2018-02-12 01:00] VITALS: BP 73/50
[2018-02-12 02:08] VITALS: BP 112/66
[2018-02-12] MEDS: ASPIRIN 325 MG TABLET PO SCH (06:08)
[2018-02-12] MEDS: LEVOTHYROXINE 25 MCG TABLET PO SCH (06:08)
[2018-02-12 07:11] VITALS: BP 94/50
[2018-02-12] MEDS: HYDROCORTISONE OINT 0.5%, 30GM TP SCH ×2 (09:00→19:59)
[2018-02-12] MEDS: FLUDROCORTISONE 0.1 MG TABLET PO SCH ×2 (09:12→19:59)
[2018-02-12] MEDS: HEPARIN 5,000 UNITS/ML, 1ML SQ SCH ×2 (09:12→19:59)
[2018-02-12 12:55] VITALS: BP 94/51
[2018-02-12 19:57] VITALS: BP 137/70
[2018-02-12] MEDS: NICOTINE 7 MG/24 HR PATCH.TD24 TD SCH (19:59)
[2018-02-13 01:27] VITALS: BP 119/76
[2018-02-13] MEDS: LEVOTHYROXINE 25 MCG TABLET PO SCH (06:06)
[2018-02-13] MEDS: ASPIRIN 325 MG TABLET PO SCH (06:06)
[2018-02-13 07:10] VITALS: BP 97/55
[2018-02-13] MEDS: HYDROCORTISONE OINT 0.5%, 30GM TP SCH ×2 (07:39→21:32)
[2018-02-13] MEDS: FLUDROCORTISONE 0.1 MG TABLET PO SCH ×2 (07:39→21:32)
[2018-02-13] MEDS: HEPARIN 5,000 UNITS/ML, 1ML SQ SCH ×2 (12:01→21:32)
[2018-02-13 12:20] VITALS: BP 96/57
[2018-02-13 19:02] VITALS: BP 104/56
[2018-02-13] MEDS: NICOTINE 7 MG/24 HR PATCH.TD24 TD SCH (21:32)
[2018-02-14 01:22] VITALS: BP 98/60
[2018-02-14] MEDS: ASPIRIN 325 MG TABLET PO SCH (05:56)
[2018-02-14] MEDS: LEVOTHYROXINE 25 MCG TABLET PO SCH (05:56)
[2018-02-14] MEDS: HYDROCORTISONE OINT 0.5%, 30GM TP SCH ×2 (07:29→19:58)
[2018-02-14] MEDS: FLUDROCORTISONE 0.1 MG TABLET PO SCH ×2 (07:29→19:58)
[2018-02-14 08:00] VITALS: BP 104/57
[2018-02-14] MEDS: HEPARIN 5,000 UNITS/ML, 1ML SQ SCH ×2 (09:25→19:58)
[2018-02-14 14:20] VITALS: BP 103/54
[2018-02-14 19:13] VITALS: BP 103/56
[2018-02-14] MEDS: NICOTINE 7 MG/24 HR PATCH.TD24 TD SCH (19:58)
[2018-02-15 00:48] VITALS: BP 106/59
[2018-02-15] MEDS: LEVOTHYROXINE 25 MCG TABLET PO SCH (05:45)
[2018-02-15] MEDS: ASPIRIN 325 MG TABLET PO SCH (05:45)
[2018-02-15 07:08] VITALS: BP 110/63
[2018-02-15] MEDS: HEPARIN 5,000 UNITS/ML, 1ML SQ SCH ×2 (09:01→21:24)
[2018-02-15] MEDS: HYDROCORTISONE OINT 0.5%, 30GM TP SCH ×2 (09:01→21:00)
[2018-02-15] MEDS: FLUDROCORTISONE 0.1 MG TABLET PO SCH ×2 (09:01→21:24)
[2018-02-15 13:57] VITALS: BP 96/56
[2018-02-15 18:46] VITALS: BP 108/61
[2018-02-15] MEDS: NICOTINE 7 MG/24 HR PATCH.TD24 TD SCH (21:24)
[2018-02-16 01:28] VITALS: BP 122/66
[2018-02-16] MEDS: LEVOTHYROXINE 25 MCG TABLET PO SCH (06:01)
[2018-02-16] MEDS: ASPIRIN 325 MG TABLET PO SCH (06:01)
[2018-02-16 07:02] VITALS: BP 115/56
[2018-02-16] MEDS: FLUDROCORTISONE 0.1 MG TABLET PO SCH ×2 (12:08→21:52)
[2018-02-16] MEDS: HYDROCORTISONE OINT 0.5%, 30GM TP SCH ×2 (12:09→21:00)
[2018-02-16] MEDS: HEPARIN 5,000 UNITS/ML, 1ML SQ SCH ×2 (12:10→21:52)
[2018-02-16 13:58] VITALS: BP 114/54
[2018-02-16 18:45] VITALS: BP 112/58
[2018-02-16] MEDS: NICOTINE 7 MG/24 HR PATCH.TD24 TD SCH (21:52)
[2018-02-17 00:27] VITALS: BP 128/63
[2018-02-17] MEDS: ACETAMINOPHEN 325 MG TABLET PO PRN (06:11)
[2018-02-17] MEDS: ASPIRIN 325 MG TABLET PO SCH (06:11)
[2018-02-17] MEDS: LEVOTHYROXINE 25 MCG TABLET PO SCH (06:12)
[2018-02-17 06:57] VITALS: BP 119/56
[2018-02-17] MEDS: HYDROCORTISONE OINT 0.5%, 30GM TP SCH ×2 (09:00→21:00)
[2018-02-17] MEDS: FLUDROCORTISONE 0.1 MG TABLET PO SCH ×2 (10:26→22:32)
[2018-02-17] MEDS: HEPARIN 5,000 UNITS/ML, 1ML SQ SCH ×2 (10:27→22:32)
[2018-02-17 13:24] VITALS: BP 92/55
[2018-02-17 20:32] VITALS: BP 99/59
[2018-02-17] MEDS: NICOTINE 7 MG/24 HR PATCH.TD24 TD SCH (22:32)
[2018-02-18 01:41] VITALS: BP 127/72
[2018-02-18] MEDS: ASPIRIN 325 MG TABLET PO SCH (06:07)
[2018-02-18] MEDS: LEVOTHYROXINE 25 MCG TABLET PO SCH (06:08)
[2018-02-18] MEDS: HYDROCORTISONE OINT 0.5%, 30GM TP SCH ×2 (09:00→21:00)
[2018-02-18 09:08] VITALS: BP 96/59
[2018-02-18] MEDS: HEPARIN 5,000 UNITS/ML, 1ML SQ SCH ×2 (10:29→21:34)
[2018-02-18] MEDS: FLUDROCORTISONE 0.1 MG TABLET PO SCH ×2 (10:29→21:33)
[2018-02-18 14:00] VITALS: BP 123/68
[2018-02-18 18:57] VITALS: BP 125/77
[2018-02-18] MEDS: NICOTINE 7 MG/24 HR PATCH.TD24 TD SCH (21:34)
[2018-02-19 01:04] VITALS: BP 148/73
[2018-02-19] MEDS: ASPIRIN 325 MG TABLET PO SCH (05:42)
[2018-02-19] MEDS: LEVOTHYROXINE 25 MCG TABLET PO SCH (05:42)
[2018-02-19 07:40] VITALS: BP 112/64
[2018-02-19] MEDS: HYDROCORTISONE OINT 0.5%, 30GM TP SCH ×2 (09:00→21:00)
[2018-02-19] MEDS: FLUDROCORTISONE 0.1 MG TABLET PO SCH ×2 (09:01→21:35)
[2018-02-19] MEDS: HEPARIN 5,000 UNITS/ML, 1ML SQ SCH ×2 (09:02→21:36)
[2018-02-19 13:10] VITALS: BP 100/61
[2018-02-19 18:49] VITALS: BP 119/65
[2018-02-19] MEDS: NICOTINE 7 MG/24 HR PATCH.TD24 TD SCH (21:35)
[2018-02-20 01:05] VITALS: BP 131/99
[2018-02-20] MEDS: ASPIRIN 325 MG TABLET PO SCH (06:10)
[2018-02-20] MEDS: LEVOTHYROXINE 25 MCG TABLET PO SCH (06:10)
[2018-02-20 07:17] VITALS: BP 123/65
[2018-02-20] MEDS: HEPARIN 5,000 UNITS/ML, 1ML SQ SCH ×2 (09:00→23:13)
[2018-02-20] MEDS: FLUDROCORTISONE 0.1 MG TABLET PO SCH ×2 (09:00→23:12)
[2018-02-20] MEDS: HYDROCORTISONE OINT 0.5%, 30GM TP SCH ×2 (09:00→23:12)
[2018-02-20 14:04] VITALS: BP 123/72
[2018-02-20 19:19] VITALS: BP 105/56
[2018-02-20] MEDS: NICOTINE 7 MG/24 HR PATCH.TD24 TD SCH (23:12)
[2018-02-21 00:55] VITALS: BP 111/67
[2018-02-21] MEDS: LEVOTHYROXINE 25 MCG TABLET PO SCH (05:42)
[2018-02-21] MEDS: ASPIRIN 325 MG TABLET PO SCH (05:42)
[2018-02-21] MEDS ORDERED: ENOXAPARIN 40 MG/0.4 ML SQ SCH (06:30)
[2018-02-21 07:31] VITALS: BP 101/60
[2018-02-21] MEDS: HYDROCORTISONE OINT 0.5%, 30GM TP SCH ×2 (09:00→21:00)
[2018-02-21] MEDS: ACETAMINOPHEN 325 MG TABLET PO PRN (09:44)
[2018-02-21] MEDS: FLUDROCORTISONE 0.1 MG TABLET PO SCH ×2 (09:44→21:07)
[2018-02-21 12:12] VITALS: BP 115/61
[2018-02-21 19:07] VITALS: BP 145/73
[2018-02-21] MEDS: NICOTINE 7 MG/24 HR PATCH.TD24 TD SCH (21:09)
[2018-02-21] MEDS: ENOXAPARIN 30 MG/0.3 ML SQ SCH (21:09)
[2018-02-22 01:04] VITALS: BP 101/60
[2018-02-22] MEDS: LEVOTHYROXINE 25 MCG TABLET PO SCH (05:05)
[2018-02-22] MEDS: ASPIRIN 325 MG TABLET PO SCH (05:05)
[2018-02-22 07:24] VITALS: BP 108/60
[2018-02-22] MEDS: FLUDROCORTISONE 0.1 MG TABLET PO SCH ×2 (10:10→22:30)
[2018-02-22] MEDS: HYDROCORTISONE OINT 0.5%, 30GM TP SCH ×2 (10:10→21:00)
[2018-02-22 14:30] VITALS: BP 104/49
[2018-02-22 18:57] VITALS: BP 95/55
[2018-02-22] MEDS: ENOXAPARIN 30 MG/0.3 ML SQ SCH (22:29)
[2018-02-22] MEDS: NICOTINE 7 MG/24 HR PATCH.TD24 TD SCH (22:30)
[2018-02-23 01:15] VITALS: BP 116/66
[2018-02-23 04:45] LABS: BASOPHILS # (AUTO) 0.09 x10^3/uL (0-0.1); BASOPHILS % (AUTO) 1 % (0-1); EOSINOPHILS # (AUTO) 0.23 x10^3/uL (0-0.4); EOSINOPHILS % (AUTO) 3 % (1-7); LYMPHOCYTES # (AUTO) 2.55 x10^3/uL (1-3.4); LYMPHOCYTES % (AUTO) 31 % (22-44); MD NO; MEAN CORPUSCULAR HEMOGLOBIN 30.1 pg (27.0-34.8); MEAN CORPUSCULAR HGB CONC 33.3 g/dL (32.4-35.8); MEAN CORPUSCULAR VOLUME 90.5 fL (80-100); MEAN PLATELET VOLUME 7.5 fL (7.4-10.4); MONOCYTES # (AUTO) 0.89 x10^3/uL (0.2-0.8); MONOCYTES % (AUTO) 11 % (2-9); NEUTROPHILS # (AUTO) 4.44 x10^3/uL (1.8-6.8); NEUTROPHILS % (AUTO) 54 % (42-75); PLATELET COUNT 276 x10^3/uL (130-400); RED BLOOD COUNT 3.69 x10^6/uL (3.82-5.3); RED CELL DISTRIBUTION WIDTH 17.4 % (9.6-15.2)
[2018-02-23 04:55] LABS: ALBUMIN 2.6 g/dL (3.4-5.0); ANION GAP 6 mmol/L (5-15); CALCIUM 8.7 mg/dL (8.5-10.1); CHLORIDE 108 mmol/L (98-107)
[2018-02-23 05:22] LABS: ALANINE AMINOTRANSFERASE 31 U/L (12-78); ALKALINE PHOSPHATASE 54 U/L (45-117); BILIRUBIN,TOTAL 0.5 mg/dL (0.2-1.0); CREATININE 1.11 mg/dL (0.55-1.02); TOTAL PROTEIN 5.9 g/dL (6.4-8.2)
[2018-02-23] MEDS: LEVOTHYROXINE 25 MCG TABLET PO SCH (05:32)
[2018-02-23] MEDS: ASPIRIN 325 MG TABLET PO SCH (05:32)
[2018-02-23] MEDS ORDERED: LEVOTHYROXINE 50 MCG TABLET PO SCH (06:30)
[2018-02-23 07:25] VITALS: BP 137/65
[2018-02-23] MEDS: HYDROCORTISONE OINT 0.5%, 30GM TP SCH (07:50)
[2018-02-23] MEDS: FLUDROCORTISONE 0.1 MG TABLET PO SCH ×2 (08:16→21:08)
[2018-02-23] MEDS: ERGOCALCIFEROL 50,000 UNIT CAPSULE PO SCH (16:34)
[2018-02-23 16:37] VITALS: BP 128/72
[2018-02-23 19:47] VITALS: BP 123/69
[2018-02-23] MEDS: NICOTINE 7 MG/24 HR PATCH.TD24 TD SCH (21:09)
[2018-02-23] MEDS: ENOXAPARIN 30 MG/0.3 ML SQ SCH (21:09)
[2018-02-24 02:00] VITALS: BP 143/75
[2018-02-24] MEDS: ASPIRIN 81 MG TABLET EC PO SCH (05:48)
[2018-02-24] MEDS: LEVOTHYROXINE 50 MCG TABLET PO SCH (05:48)
[2018-02-24 08:24] VITALS: BP 109/58
[2018-02-24] MEDS ORDERED: ENOXAPARIN 40 MG/0.4 ML SQ SCH (14:00)
[2018-02-24] MEDS: FLUDROCORTISONE 0.1 MG TABLET PO SCH ×2 (14:13→20:40)
[2018-02-24 14:15] VITALS: BP 97/59
[2018-02-24 19:12] VITALS: BP 95/63
[2018-02-24] MEDS: NICOTINE 7 MG/24 HR PATCH.TD24 TD SCH (20:40)
[2018-02-24] MEDS: ENOXAPARIN 40 MG/0.4 ML SQ SCH (20:40)
[2018-02-25 01:54] VITALS: BP 132/79
[2018-02-25] MEDS: LEVOTHYROXINE 50 MCG TABLET PO SCH (05:29)
[2018-02-25] MEDS: ASPIRIN 81 MG TABLET EC PO SCH (05:29)
[2018-02-25 07:49] VITALS: BP 95/57
[2018-02-25 08:40] LABS: BASOPHILS # (AUTO) 0.06 x10^3/uL (0-0.1); BASOPHILS % (AUTO) 1 % (0-1); EOSINOPHILS % (AUTO) 3 % (1-7); LYMPHOCYTES # (AUTO) 2.11 x10^3/uL (1-3.4); LYMPHOCYTES % (AUTO) 27 % (22-44); MD NO; MEAN CORPUSCULAR HEMOGLOBIN 30.1 pg (27.0-34.8); MEAN CORPUSCULAR HGB CONC 33.5 g/dL (32.4-35.8); MEAN CORPUSCULAR VOLUME 90.1 fL (80-100); MEAN PLATELET VOLUME 7.3 fL (7.4-10.4); MONOCYTES # (AUTO) 1.16 x10^3/uL (0.2-0.8); MONOCYTES % (AUTO) 15 % (2-9); NEUTROPHILS # (AUTO) 4.17 x10^3/uL (1.8-6.8); NEUTROPHILS % (AUTO) 54 % (42-75); PLATELET COUNT 293 x10^3/uL (130-400); RED BLOOD COUNT 3.68 x10^6/uL (3.82-5.3); RED CELL DISTRIBUTION WIDTH 17.3 % (9.6-15.2)
[2018-02-25 08:56] LABS: ALANINE AMINOTRANSFERASE 34 U/L (12-78); ALBUMIN 2.5 g/dL (3.4-5.0); ANION GAP 9 mmol/L (5-15); CALCIUM 8.9 mg/dL (8.5-10.1); CHLORIDE 106 mmol/L (98-107)
[2018-02-25 09:06] LABS: ALKALINE PHOSPHATASE 53 U/L (45-117); BILIRUBIN,TOTAL 0.2 mg/dL (0.2-1.0); FREE T4 (FREE THYROXINE) 0.49 ng/dL (0.76-1.46); TOTAL PROTEIN 5.9 g/dL (6.4-8.2)
[2018-02-25] MEDS: FLUDROCORTISONE 0.1 MG TABLET PO SCH ×2 (09:47→21:19)
[2018-02-25 14:35] VITALS: BP 87/50
[2018-02-25 14:37] VITALS: BP 106/55
[2018-02-25 19:14] VITALS: BP 111/58
[2018-02-25] MEDS: ENOXAPARIN 40 MG/0.4 ML SQ SCH (21:20)
[2018-02-25] MEDS: NICOTINE 7 MG/24 HR PATCH.TD24 TD SCH (21:20)
[2018-02-26 01:24] VITALS: BP 106/62
[2018-02-26] MEDS: ASPIRIN 81 MG TABLET EC PO SCH (05:18)
[2018-02-26] MEDS: LEVOTHYROXINE 50 MCG TABLET PO SCH (05:18)
[2018-02-26 07:27] VITALS: BP 93/61
[2018-02-26] MEDS: FLUDROCORTISONE 0.1 MG TABLET PO SCH ×2 (08:58→20:30)
[2018-02-26 12:48] VITALS: BP 75/48
[2018-02-26 19:14] VITALS: BP 88/56
[2018-02-26] MEDS: ENOXAPARIN 40 MG/0.4 ML SQ SCH (20:30)
[2018-02-26] MEDS: NICOTINE 7 MG/24 HR PATCH.TD24 TD SCH (23:30)
[2018-02-27 01:26] VITALS: BP 120/70
[2018-02-27] MEDS: ASPIRIN 81 MG TABLET EC PO SCH (05:15)
[2018-02-27] MEDS: LEVOTHYROXINE 50 MCG TABLET PO SCH (05:16)
[2018-02-27 08:31] VITALS: BP 116/64
[2018-02-27] MEDS: FLUDROCORTISONE 0.1 MG TABLET PO SCH ×2 (10:07→22:32)
[2018-02-27 12:55] VITALS: BP 129/42
[2018-02-27 19:49] VITALS: BP 96/60
[2018-02-27] MEDS: ENOXAPARIN 40 MG/0.4 ML SQ SCH (22:33)
[2018-02-27] MEDS: NICOTINE 7 MG/24 HR PATCH.TD24 TD SCH (22:33)
[2018-02-28 01:46] VITALS: BP 100/65
[2018-02-28 05:22] LABS: CHLORIDE 106 mmol/L (98-107)
[2018-02-28 05:30] LABS: ANION GAP 7 mmol/L (5-15); CALCIUM 8.8 mg/dL (8.5-10.1); CHOLESTEROL, TOTAL 258 mg/dL (140-239); HDL CHOL % 20 % (28-40); HDL CHOLESTEROL (DIRECT) 52 mg/dL (40-60); LDL CHOLESTEROL,CALCULATED 179 mg/dL (54-169); LDL/HDL RATIO 3.4 (0.5-3.0); TRIGLYCERIDES 136 mg/dL (50-200); VLDL CHOLESTEROL 27 mg/dL (0-25)
[2018-02-28] MEDS: LEVOTHYROXINE 50 MCG TABLET PO SCH (06:13)
[2018-02-28] MEDS: ASPIRIN 81 MG TABLET EC PO SCH (06:14)
[2018-02-28 09:11] VITALS: BP 131/66
[2018-02-28] MEDS: FLUDROCORTISONE 0.1 MG TABLET PO SCH ×2 (09:43→20:15)
[2018-02-28 15:05] VITALS: BP 92/56
[2018-02-28 19:14] VITALS: BP 101/70
[2018-02-28] MEDS: ENOXAPARIN 40 MG/0.4 ML SQ SCH (20:15)
[2018-02-28] MEDS: NICOTINE 7 MG/24 HR PATCH.TD24 TD SCH (20:15)
[2018-03-01 01:18] VITALS: BP 142/59
[2018-03-01] MEDS: ASPIRIN 81 MG TABLET EC PO SCH (06:11)
[2018-03-01] MEDS: LEVOTHYROXINE 50 MCG TABLET PO SCH (06:11)
[2018-03-01 07:33] VITALS: BP 100/58
[2018-03-01] MEDS: FLUDROCORTISONE 0.1 MG TABLET PO SCH ×2 (12:36→21:12)
[2018-03-01 15:42] VITALS: BP 107/64
[2018-03-01 19:04] VITALS: BP 118/81
[2018-03-01] MEDS: NICOTINE 7 MG/24 HR PATCH.TD24 TD SCH (21:12)
[2018-03-01] MEDS: ENOXAPARIN 40 MG/0.4 ML SQ SCH (21:12)
[2018-03-02 02:04] VITALS: BP 125/56
[2018-03-02 06:03] VITALS: BP 149/61
[2018-03-02] MEDS: LEVOTHYROXINE 50 MCG TABLET PO SCH (06:03)
[2018-03-02] MEDS: ASPIRIN 81 MG TABLET EC PO SCH (06:03)
[2018-03-02] MEDS: FLUDROCORTISONE 0.1 MG TABLET PO SCH ×2 (09:52→22:09)
[2018-03-02 13:53] VITALS: BP 128/63
[2018-03-02] MEDS: ERGOCALCIFEROL 50,000 UNIT CAPSULE PO SCH (16:56)
[2018-03-02 19:50] VITALS: BP 110/55
[2018-03-02] MEDS: ENOXAPARIN 40 MG/0.4 ML SQ SCH (22:08)
[2018-03-02] MEDS: NICOTINE 7 MG/24 HR PATCH.TD24 TD SCH (22:08)
[2018-03-03 00:16] VITALS: BP 122/79
[2018-03-03] MEDS: LEVOTHYROXINE 50 MCG TABLET PO SCH (05:41)
[2018-03-03] MEDS: ASPIRIN 81 MG TABLET EC PO SCH (05:41)
[2018-03-03 08:11] VITALS: BP 130/57
[2018-03-03] MEDS: FLUDROCORTISONE 0.1 MG TABLET PO SCH ×2 (08:12→22:18)
[2018-03-03 15:10] VITALS: BP 132/70
[2018-03-03 19:24] VITALS: BP 105/67
[2018-03-03] MEDS: NICOTINE 7 MG/24 HR PATCH.TD24 TD SCH (22:18)
[2018-03-03] MEDS: ENOXAPARIN 40 MG/0.4 ML SQ SCH (22:19)
[2018-03-04 01:25] VITALS: BP 150/79
[2018-03-04] MEDS: ASPIRIN 81 MG TABLET EC PO SCH (05:59)
[2018-03-04] MEDS: LEVOTHYROXINE 50 MCG TABLET PO SCH (05:59)
[2018-03-04 09:35] VITALS: BP 116/73
[2018-03-04] MEDS: FLUDROCORTISONE 0.1 MG TABLET PO SCH ×2 (09:37→20:01)
[2018-03-04 14:19] VITALS: BP 106/62
[2018-03-04 19:10] VITALS: BP 118/52
[2018-03-04] MEDS: ENOXAPARIN 40 MG/0.4 ML SQ SCH (21:58)
[2018-03-04] MEDS: NICOTINE 7 MG/24 HR PATCH.TD24 TD SCH (21:59)
[2018-03-05 02:24] VITALS: BP 128/73
[2018-03-05] MEDS: ASPIRIN 81 MG TABLET EC PO SCH (06:35)
[2018-03-05] MEDS: LEVOTHYROXINE 50 MCG TABLET PO SCH (06:35)
[2018-03-05 07:58] VITALS: BP 131/73
[2018-03-05] MEDS: FLUDROCORTISONE 0.1 MG TABLET PO SCH ×2 (09:05→21:54)
[2018-03-05 13:58] VITALS: BP 112/79
[2018-03-05 19:20] VITALS: BP 95/61
[2018-03-05] MEDS: ENOXAPARIN 40 MG/0.4 ML SQ SCH (21:54)
[2018-03-05] MEDS: NICOTINE 7 MG/24 HR PATCH.TD24 TD SCH (21:55)
[2018-03-06 01:06] VITALS: BP 145/70
[2018-03-06] MEDS: ASPIRIN 81 MG TABLET EC PO SCH (06:02)
[2018-03-06] MEDS: LEVOTHYROXINE 50 MCG TABLET PO SCH (06:02)
[2018-03-06 06:53] VITALS: BP 125/69
[2018-03-06] MEDS: FLUDROCORTISONE 0.1 MG TABLET PO SCH ×2 (08:20→20:29)
[2018-03-06 12:59] VITALS: BP 144/65
[2018-03-06 19:10] VITALS: BP 111/62
[2018-03-06] MEDS: ENOXAPARIN 40 MG/0.4 ML SQ SCH (20:29)
[2018-03-06] MEDS: NICOTINE 7 MG/24 HR PATCH.TD24 TD SCH (20:30)
[2018-03-07 01:48] VITALS: BP 106/64
[2018-03-07] MEDS: ASPIRIN 81 MG TABLET EC PO SCH (05:43)
[2018-03-07] MEDS: LEVOTHYROXINE 50 MCG TABLET PO SCH (05:44)
[2018-03-07 07:05] VITALS: BP 121/75
[2018-03-07] MEDS: FLUDROCORTISONE 0.1 MG TABLET PO SCH ×2 (08:32→20:34)
[2018-03-07 12:31] VITALS: BP 138/77
[2018-03-07 19:36] VITALS: BP 130/74
[2018-03-07] MEDS: NICOTINE 7 MG/24 HR PATCH.TD24 TD SCH (20:34)
[2018-03-07] MEDS: ENOXAPARIN 40 MG/0.4 ML SQ SCH (20:34)
[2018-03-08 01:29] VITALS: BP 136/78
[2018-03-08] MEDS: ASPIRIN 81 MG TABLET EC PO SCH (05:31)
[2018-03-08] MEDS: LEVOTHYROXINE 50 MCG TABLET PO SCH (05:32)
[2018-03-08 06:35] VITALS: BP 125/75
[2018-03-08] MEDS: FLUDROCORTISONE 0.1 MG TABLET PO SCH ×2 (08:46→20:40)
[2018-03-08] MEDS: ACETAMINOPHEN 325 MG TABLET PO PRN (12:31)
[2018-03-08 14:08] VITALS: BP 105/65
[2018-03-08 19:31] VITALS: BP 119/63
[2018-03-08] MEDS: NICOTINE 7 MG/24 HR PATCH.TD24 TD SCH (20:40)
[2018-03-08] MEDS: ENOXAPARIN 40 MG/0.4 ML SQ SCH (20:40)
[2018-03-09 03:00] VITALS: BP 164/80
[2018-03-09] MEDS: LEVOTHYROXINE 50 MCG TABLET PO SCH (06:16)
[2018-03-09] MEDS: ASPIRIN 81 MG TABLET EC PO SCH (06:16)
[2018-03-09] MEDS: FLUDROCORTISONE 0.1 MG TABLET PO SCH ×2 (09:18→21:31)
[2018-03-09 09:43] VITALS: BP 117/65
[2018-03-09 13:54] VITALS: BP 116/69
[2018-03-09] MEDS: ERGOCALCIFEROL 50,000 UNIT CAPSULE PO SCH (19:25)
[2018-03-09 19:28] VITALS: BP 160/72
[2018-03-09] MEDS: ENOXAPARIN 40 MG/0.4 ML SQ SCH (21:31)
[2018-03-09] MEDS: NICOTINE 7 MG/24 HR PATCH.TD24 TD SCH (21:32)
[2018-03-09] MEDS: ACETAMINOPHEN 325 MG TABLET PO PRN (21:46)
[2018-03-10 01:05] VITALS: BP 109/62
[2018-03-10] MEDS: LEVOTHYROXINE 50 MCG TABLET PO SCH (05:49)
[2018-03-10] MEDS: ASPIRIN 81 MG TABLET EC PO SCH (05:49)
[2018-03-10 08:20] VITALS: BP 108/46
[2018-03-10] MEDS: FLUDROCORTISONE 0.1 MG TABLET PO SCH ×2 (09:36→19:40)
[2018-03-10] MEDS: SODIUM CHLORIDE 0.9% 1,000 ML IV SCH ×2 (12:23→22:00)
[2018-03-10 14:16] VITALS: BP_SYST 150; BP_SYST 166; BP_DIAS 75; BP_DIAS 76
[2018-03-10 18:36] VITALS: BP 116/68
[2018-03-10] MEDS: ENOXAPARIN 40 MG/0.4 ML SQ SCH (19:40)
[2018-03-10] MEDS: NICOTINE 7 MG/24 HR PATCH.TD24 TD SCH (19:40)
[2018-03-11 01:22] VITALS: BP 139/77
[2018-03-11] MEDS: LEVOTHYROXINE 50 MCG TABLET PO SCH (04:24)
[2018-03-11] MEDS: ASPIRIN 81 MG TABLET EC PO SCH (04:24)
[2018-03-11 05:22] LABS: ANION GAP 6 mmol/L (5-15); CALCIUM 8.5 mg/dL (8.5-10.1); CHLORIDE 108 mmol/L (98-107)
[2018-03-11 05:34] LABS: CREATININE 0.94 mg/dL (0.55-1.02)
[2018-03-11 07:47] VITALS: BP 148/64
[2018-03-11] MEDS: FLUDROCORTISONE 0.1 MG TABLET PO SCH ×2 (10:45→20:59)
[2018-03-11] MEDS: POTASSIUM CHLORIDE 20 MEQ TAB.ER.PRT PO SCH ×4 (11:00→21:00)
[2018-03-11 15:50] VITALS: BP 139/66
[2018-03-11] MEDS: ENOXAPARIN 40 MG/0.4 ML SQ SCH (20:59)
[2018-03-11] MEDS: NICOTINE 7 MG/24 HR PATCH.TD24 TD SCH (20:59)
[2018-03-11 21:07] VITALS: BP 104/69
[2018-03-12 03:46] VITALS: BP 137/74
[2018-03-12 05:26] LABS: ANION GAP 5 mmol/L (5-15); CALCIUM 8.4 mg/dL (8.5-10.1); CHLORIDE 110 mmol/L (98-107)
[2018-03-12 05:27] LABS: CREATININE 1.01 mg/dL (0.55-1.02)
[2018-03-12] MEDS: LEVOTHYROXINE 50 MCG TABLET PO SCH (05:36)
[2018-03-12] MEDS: ASPIRIN 81 MG TABLET EC PO SCH (05:36)
[2018-03-12 07:24] VITALS: BP 122/63
[2018-03-12] MEDS: FLUDROCORTISONE 0.1 MG TABLET PO SCH ×2 (09:39→20:46)
[2018-03-12 13:32] VITALS: BP 124/64
[2018-03-12 19:19] VITALS: BP 132/77
[2018-03-12] MEDS: ENOXAPARIN 40 MG/0.4 ML SQ SCH (20:46)
[2018-03-12] MEDS: NICOTINE 7 MG/24 HR PATCH.TD24 TD SCH (20:46)
[2018-03-13 00:36] VITALS: BP 122/79
[2018-03-13] MEDS: ASPIRIN 81 MG TABLET EC PO SCH (05:33)
[2018-03-13] MEDS: LEVOTHYROXINE 50 MCG TABLET PO SCH (05:33)
[2018-03-13 07:39] VITALS: BP 117/67
[2018-03-13] MEDS: FLUDROCORTISONE 0.1 MG TABLET PO SCH ×2 (08:45→20:44)
[2018-03-13 13:35] VITALS: BP 120/61
[2018-03-13 19:05] VITALS: BP 122/71
[2018-03-13] MEDS: ENOXAPARIN 40 MG/0.4 ML SQ SCH (20:44)
[2018-03-13] MEDS: NICOTINE 7 MG/24 HR PATCH.TD24 TD SCH (20:44)
[2018-03-14 01:14] VITALS: BP 150/79
[2018-03-14] MEDS: LEVOTHYROXINE 50 MCG TABLET PO SCH (05:21)
[2018-03-14] MEDS: ASPIRIN 81 MG TABLET EC PO SCH (05:21)
[2018-03-14] MEDS: FLUDROCORTISONE 0.1 MG TABLET PO SCH ×2 (09:05→20:52)
[2018-03-14 13:17] VITALS: BP 138/69
[2018-03-14 18:44] VITALS: BP 155/76
[2018-03-14] MEDS: NICOTINE 7 MG/24 HR PATCH.TD24 TD SCH (20:52)
[2018-03-14] MEDS: ENOXAPARIN 40 MG/0.4 ML SQ SCH (20:52)
[2018-03-15 01:01] VITALS: BP 164/73
[2018-03-15] MEDS: ASPIRIN 81 MG TABLET EC PO SCH ×2 (05:50→06:28)
[2018-03-15] MEDS: LEVOTHYROXINE 50 MCG TABLET PO SCH (06:28)
[2018-03-15 07:30] VITALS: BP 128/64
[2018-03-15] MEDS: FLUDROCORTISONE 0.1 MG TABLET PO SCH ×2 (09:03→20:49)
[2018-03-15 14:00] VITALS: BP 127/68
[2018-03-15 19:03] VITALS: BP 129/61
[2018-03-15] MEDS: ENOXAPARIN 40 MG/0.4 ML SQ SCH (20:49)
[2018-03-15] MEDS: NICOTINE 7 MG/24 HR PATCH.TD24 TD SCH (20:49)
[2018-03-16 00:56] VITALS: BP 161/77
[2018-03-16] MEDS: LEVOTHYROXINE 50 MCG TABLET PO SCH (05:39)
[2018-03-16 07:22] VITALS: BP 133/71
[2018-03-16] MEDS: FLUDROCORTISONE 0.1 MG TABLET PO SCH ×2 (09:51→20:44)
[2018-03-16 13:58] VITALS: BP 127/75
[2018-03-16] MEDS: ERGOCALCIFEROL 50,000 UNIT CAPSULE PO SCH (16:00)
[2018-03-16 19:10] VITALS: BP 138/78
[2018-03-16] MEDS: ACETAMINOPHEN 325 MG TABLET PO PRN (20:44)
[2018-03-16] MEDS: NICOTINE 7 MG/24 HR PATCH.TD24 TD SCH (20:45)
[2018-03-16] MEDS: ENOXAPARIN 40 MG/0.4 ML SQ SCH (20:45)
[2018-03-17 00:40] VITALS: BP 136/68
[2018-03-17] MEDS: LEVOTHYROXINE 50 MCG TABLET PO SCH (05:58)
[2018-03-17] MEDS: ASPIRIN 81 MG TABLET EC PO SCH (05:58)
[2018-03-17 07:13] VITALS: BP 126/63
[2018-03-17] MEDS: FLUDROCORTISONE 0.1 MG TABLET PO SCH ×2 (09:53→19:59)
[2018-03-17 12:41] VITALS: BP 127/60
[2018-03-17 19:52] VITALS: BP 106/67
[2018-03-17] MEDS: NICOTINE 7 MG/24 HR PATCH.TD24 TD SCH (19:59)
[2018-03-17] MEDS: ENOXAPARIN 40 MG/0.4 ML SQ SCH (20:00)
[2018-03-18] VITALS: BP 135/88
[2018-03-18] MEDS: ASPIRIN 81 MG TABLET EC PO SCH (05:10)
[2018-03-18] MEDS: LEVOTHYROXINE 50 MCG TABLET PO SCH (05:10)
[2018-03-18 08:20] VITALS: BP 116/67
[2018-03-18] MEDS: FLUDROCORTISONE 0.1 MG TABLET PO SCH ×2 (09:19→20:24)
[2018-03-18 13:08] VITALS: BP 96/55
[2018-03-18 19:35] VITALS: BP 117/58
[2018-03-18] MEDS: ENOXAPARIN 40 MG/0.4 ML SQ SCH (20:24)
[2018-03-19 01:47] VITALS: BP 110/56
[2018-03-19 05:11] LABS: CHLORIDE 105 mmol/L (98-107)
[2018-03-19] MEDS: ASPIRIN 81 MG TABLET EC PO SCH (05:15)
[2018-03-19] MEDS: LEVOTHYROXINE 50 MCG TABLET PO SCH (05:15)
[2018-03-19 05:16] LABS: ANION GAP 12 mmol/L (5-15); CREATININE 0.95 mg/dL (0.55-1.02)
[2018-03-19 06:52] VITALS: BP 104/65
[2018-03-19] MEDS ORDERED: POTASSIUM CHLORIDE 20 MEQ TAB.ER.PRT PO ONE (09:00)
[2018-03-19] MEDS: FLUDROCORTISONE 0.1 MG TABLET PO SCH ×2 (09:48→20:01)
[2018-03-19 15:01] VITALS: BP 92/54
[2018-03-19 19:01] VITALS: BP 114/57
[2018-03-19] MEDS: ENOXAPARIN 40 MG/0.4 ML SQ SCH (20:01)
[2018-03-20 01:08] VITALS: BP 119/59
[2018-03-20] MEDS: ASPIRIN 81 MG TABLET EC PO SCH (05:51)
[2018-03-20] MEDS: LEVOTHYROXINE 50 MCG TABLET PO SCH (05:51)
[2018-03-20] MEDS: FLUDROCORTISONE 0.1 MG TABLET PO SCH ×2 (07:55→19:58)
[2018-03-20] MEDS: POTASSIUM CHLORIDE 20 MEQ TAB.ER.PRT PO SCH (07:55)
[2018-03-20 08:59] VITALS: BP 91/55
[2018-03-20 15:55] VITALS: BP 107/63
[2018-03-20 19:38] VITALS: BP 118/56
[2018-03-20] MEDS: ENOXAPARIN 40 MG/0.4 ML SQ SCH (19:58)
[2018-03-21 01:02] VITALS: BP 136/73
[2018-03-21] MEDS: ASPIRIN 81 MG TABLET EC PO SCH (05:24)
[2018-03-21] MEDS: LEVOTHYROXINE 50 MCG TABLET PO SCH (05:24)
[2018-03-21 07:15] VITALS: BP 100/64
[2018-03-21] MEDS: POTASSIUM CHLORIDE 20 MEQ TAB.ER.PRT PO SCH (08:11)
[2018-03-21] MEDS: FLUDROCORTISONE 0.1 MG TABLET PO SCH ×2 (08:11→21:03)
[2018-03-21 13:25] VITALS: BP 91/60
[2018-03-21 19:10] VITALS: BP 104/61
[2018-03-21] MEDS: ENOXAPARIN 40 MG/0.4 ML SQ SCH (21:03)
[2018-03-22 02:49] VITALS: BP 126/68
[2018-03-22] MEDS: LEVOTHYROXINE 50 MCG TABLET PO SCH (05:00)
[2018-03-22] MEDS: ASPIRIN 81 MG TABLET EC PO SCH (05:00)
[2018-03-22 09:00] VITALS: BP 99/62
[2018-03-22] MEDS: POTASSIUM CHLORIDE 20 MEQ TAB.ER.PRT PO SCH (09:52)
[2018-03-22] MEDS: FLUDROCORTISONE 0.1 MG TABLET PO SCH ×2 (09:52→20:19)
[2018-03-22 13:16] VITALS: BP 127/72
[2018-03-22 19:12] VITALS: BP 107/69
[2018-03-22] MEDS: ENOXAPARIN 40 MG/0.4 ML SQ SCH (20:19)
[2018-03-23 01:35] VITALS: BP 108/67
[2018-03-23] MEDS: ASPIRIN 81 MG TABLET EC PO SCH (05:24)
[2018-03-23] MEDS: LEVOTHYROXINE 50 MCG TABLET PO SCH (05:24)
[2018-03-23 05:51] LABS: CHLORIDE 108 mmol/L (98-107)
[2018-03-23 06:26] LABS: ANION GAP 11 mmol/L (5-15); CALCIUM 8.6 mg/dL (8.5-10.1); CREATININE 1.02 mg/dL (0.55-1.02)
[2018-03-23 07:47] VITALS: BP 109/67
[2018-03-23] MEDS: FLUDROCORTISONE 0.1 MG TABLET PO SCH ×2 (10:12→20:18)
[2018-03-23] MEDS ORDERED: ASPI-621 PO (10:31)
[2018-03-23] MEDS ORDERED: LEVO50TA PO (10:31)
[2018-03-23] MEDS ORDERED: FLUD0.1T PO (10:31)
[2018-03-23 13:13] VITALS: BP 93/55
[2018-03-23] MEDS: ERGOCALCIFEROL 50,000 UNIT CAPSULE PO SCH (17:40)
[2018-03-23 19:29] VITALS: BP 150/70
[2018-03-23] MEDS: ENOXAPARIN 40 MG/0.4 ML SQ SCH (20:18)
[2018-03-24 02:30] VITALS: BP 116/62
[2018-03-24] MEDS: LEVOTHYROXINE 50 MCG TABLET PO SCH (05:52)
[2018-03-24] MEDS: ASPIRIN 81 MG TABLET EC PO SCH (05:52)
[2018-03-24 07:30] VITALS: BP 137/65
[2018-03-24] MEDS: FLUDROCORTISONE 0.1 MG TABLET PO SCH ×2 (09:05→22:03)
[2018-03-24 12:58] VITALS: BP 132/71
[2018-03-24 20:18] VITALS: BP 109/63
[2018-03-24] MEDS: ENOXAPARIN 40 MG/0.4 ML SQ SCH (22:03)
[2018-03-25 05:04] VITALS: BP 120/61
[2018-03-25] MEDS: ASPIRIN 81 MG TABLET EC PO SCH (05:34)
[2018-03-25] MEDS: LEVOTHYROXINE 50 MCG TABLET PO SCH (05:34)
[2018-03-25 07:03] VITALS: BP 120/68
[2018-03-25] MEDS: FLUDROCORTISONE 0.1 MG TABLET PO SCH ×2 (09:10→20:15)
[2018-03-25 13:20] VITALS: BP 98/68
[2018-03-25 19:58] VITALS: BP 107/67
[2018-03-25] MEDS: ENOXAPARIN 40 MG/0.4 ML SQ SCH (20:15)
[2018-03-26 03:20] VITALS: BP 99/61
[2018-03-26] MEDS: LEVOTHYROXINE 50 MCG TABLET PO SCH (06:18)
[2018-03-26] MEDS: ASPIRIN 81 MG TABLET EC PO SCH (06:18)
[2018-03-26 07:22] VITALS: BP 101/62
[2018-03-26] MEDS: FLUDROCORTISONE 0.1 MG TABLET PO SCH ×2 (09:18→20:17)
[2018-03-26 13:36] VITALS: BP 111/67
[2018-03-26 19:24] VITALS: BP 107/61
[2018-03-26] MEDS: ENOXAPARIN 40 MG/0.4 ML SQ SCH (20:18)
[2018-03-27 01:43] VITALS: BP 134/75
[2018-03-27] MEDS: LEVOTHYROXINE 50 MCG TABLET PO SCH (06:17)
[2018-03-27] MEDS: ASPIRIN 81 MG TABLET EC PO SCH (06:17)
[2018-03-27 08:30] VITALS: BP 120/73
[2018-03-27] MEDS: FLUDROCORTISONE 0.1 MG TABLET PO SCH ×2 (10:53→19:49)
[2018-03-27 14:55] VITALS: BP 115/68
[2018-03-27] MEDS: RISPERIDONE 0.5 MG TABLET PO SCH (17:33)
[2018-03-27 19:42] VITALS: BP 118/71
[2018-03-27] MEDS: ENOXAPARIN 40 MG/0.4 ML SQ SCH (19:49)
[2018-03-28 01:10] VITALS: BP 125/74
[2018-03-28] MEDS: ASPIRIN 81 MG TABLET EC PO SCH (06:30)
[2018-03-28] MEDS: LEVOTHYROXINE 50 MCG TABLET PO SCH (06:30)
[2018-03-28 08:45] VITALS: BP 123/73
[2018-03-28] MEDS: FLUDROCORTISONE 0.1 MG TABLET PO SCH ×2 (09:01→20:19)
[2018-03-28 14:00] VITALS: BP 138/69
[2018-03-28] MEDS: RISPERIDONE 0.5 MG TABLET PO SCH (16:44)
[2018-03-28 20:00] VITALS: BP 149/73
[2018-03-28] MEDS: ENOXAPARIN 40 MG/0.4 ML SQ SCH (20:20)
[2018-03-29 01:52] VITALS: BP 123/62
[2018-03-29] MEDS: ASPIRIN 81 MG TABLET EC PO SCH (05:18)
[2018-03-29] MEDS: LEVOTHYROXINE 50 MCG TABLET PO SCH (05:18)
[2018-03-29 06:49] VITALS: BP 97/59
[2018-03-29] MEDS: FLUDROCORTISONE 0.1 MG TABLET PO SCH ×2 (08:35→20:19)
[2018-03-29 12:23] VITALS: BP 111/67
[2018-03-29] MEDS: RISPERIDONE 0.5 MG TABLET PO SCH (18:40)
[2018-03-29] MEDS: ENOXAPARIN 40 MG/0.4 ML SQ SCH (20:20)
[2018-03-29 20:24] VITALS: BP 133/69
[2018-03-30 02:15] VITALS: BP 135/76
[2018-03-30] MEDS: LEVOTHYROXINE 50 MCG TABLET PO SCH (05:52)
[2018-03-30] MEDS: ASPIRIN 81 MG TABLET EC PO SCH (05:52)
[2018-03-30 06:48] VITALS: BP 122/64
[2018-03-30] MEDS: FLUDROCORTISONE 0.1 MG TABLET PO SCH ×2 (07:34→20:02)
[2018-03-30 12:17] VITALS: BP 115/68
[2018-03-30] MEDS: ERGOCALCIFEROL 50,000 UNIT CAPSULE PO SCH (17:03)
[2018-03-30] MEDS: RISPERIDONE 0.5 MG TABLET PO SCH (17:04)
[2018-03-30 19:13] VITALS: BP 114/71
[2018-03-30] MEDS: ENOXAPARIN 40 MG/0.4 ML SQ SCH (20:02)
[2018-03-31 01:06] VITALS: BP 124/75
[2018-03-31] MEDS: LEVOTHYROXINE 50 MCG TABLET PO SCH (05:50)
[2018-03-31] MEDS: ASPIRIN 81 MG TABLET EC PO SCH (05:50)
[2018-03-31 06:45] VITALS: BP 106/64
[2018-03-31] MEDS: FLUDROCORTISONE 0.1 MG TABLET PO SCH ×2 (10:33→20:01)
[2018-03-31 14:09] VITALS: BP 115/68
[2018-03-31] MEDS: RISPERIDONE 0.5 MG TABLET PO SCH (18:53)
[2018-03-31 20:00] VITALS: BP 133/72
[2018-03-31] MEDS: ENOXAPARIN 40 MG/0.4 ML SQ SCH (20:01)
[2018-04-01 02:10] VITALS: BP 114/69
[2018-04-01] MEDS: ASPIRIN 81 MG TABLET EC PO SCH (06:18)
[2018-04-01] MEDS: LEVOTHYROXINE 50 MCG TABLET PO SCH (06:18)
[2018-04-01 08:17] VITALS: BP 149/63
[2018-04-01] MEDS: FLUDROCORTISONE 0.1 MG TABLET PO SCH ×2 (09:04→20:44)
[2018-04-01 13:35] VITALS: BP 120/64
[2018-04-01] MEDS: RISPERIDONE 0.5 MG TABLET PO SCH (18:23)
[2018-04-01] MEDS: ENOXAPARIN 40 MG/0.4 ML SQ SCH (20:45)
[2018-04-01 21:15] VITALS: BP 108/55
[2018-04-02 00:52] VITALS: BP 146/75
[2018-04-02] MEDS: LEVOTHYROXINE 50 MCG TABLET PO SCH (06:18)
[2018-04-02] MEDS: ASPIRIN 81 MG TABLET EC PO SCH (06:18)
[2018-04-02 07:50] VITALS: BP 100/58
[2018-04-02] MEDS: FLUDROCORTISONE 0.1 MG TABLET PO SCH (09:17)
[2018-04-02] MEDS ORDERED: ONDA4TAB13 PO (10:11)
[2018-04-02] MEDS ORDERED: RISP0.5T24 PO (10:11)
[2018-04-02] MEDS ORDERED: HALO1TAB PO (10:11)
[2018-04-02] MEDS ORDERED: ACET325T14 PO (10:11)
[2018-04-02] MEDS ORDERED: BISA10SU65 PR (10:11)
== END 2018-04-02 12:53 | DRG 70 ==
LOC: ED 14:08 → EDIP 16:38 → 3NE 17:11
PROVIDERS: ADMIT Internal Medicine; ATTEND Hospitalist
PROC: 0T9B70Z Drainage of Bladder with Drainage Device, Via Natural or Artificial Opening (ICD-10-PCS; principal; 2018-01-07)
DX: G93.41 Metabolic encephalopathy (principal); N17.0 Acute kidney failure with tubular necrosis; E43 Unspecified severe protein-calorie malnutrition; I10 Essential (primary) hypertension; R74.8 Abnormal levels of other serum enzymes; E78.5 Hyperlipidemia, unspecified; Z66 Do not resuscitate; E89.0 Postprocedural hypothyroidism; E87.6 Hypokalemia; E55.9 Vitamin D deficiency, unspecified; E11.9 Type 2 diabetes mellitus without complications; F03.90 Unspecified dementia, unspecified severity, without behavioral disturbance, psychotic disturbance, mood disturbance, and anxiety; E86.0 Dehydration; B02.9 Zoster without complications; Z88.5 Allergy status to narcotic agent; Z79.899 Other long term (current) drug therapy; Z87.891 Personal history of nicotine dependence; Z90.710 Acquired absence of both cervix and uterus
CPT/HCPCS: 36415; 71045; 80048; 80053; 80061; 81003; 82306; 82565; 82607; 83735; 83970; 84439; 84443; 84481; 84484; 85025; 86480; 87324; 90732; 93005; 93306; 96360; J1644; J1650; 92523-GN; J3480; J7030